=== PATIENT | female | born 1990 | race Caucasian/White ===

== ENCOUNTER 2023-05-26 17:33 | Emergency (ER) | payer MEDICAID ==
[~2023-05-26] VITALS: Ht 154.9 cm; Wt 66.7 kg
[2023-05-26 17:46] VITALS: BP 124/84; PULSE 69; RESP 18; TEMP 97.2; O2SAT 100
[2023-05-26] MEDS ORDERED: VIB100 PO (18:33)
== END 2023-05-26 19:07 | disposition home or self-care (01) ==
LOC: MED 17:33
DX: S81.832A Puncture wound without foreign body, left lower leg, initial encounter (principal); W54.0XXA Bitten by dog, initial encounter; Y93.89 Activity, other specified; Y92.89 Other specified places as the place of occurrence of the external cause; Y99.8 Other external cause status
CPT/HCPCS: 90471; 90715; 99283